=== PATIENT | female | born 1935 | race Caucasian/White ===

== ENCOUNTER 2018-09-26 11:46 | Inpatient (IN) | payer MEDICARE, MEDICAID ==
[~2018-09-26] VITALS: Ht 152.4 cm; Wt 54.4 kg
[2018-09-26] MEDS ORDERED: methylPREDNISolone SOD SUCC 125 MG/2 ML VIAL IV ONE (12:00)
[2018-09-26] MEDS ORDERED: ALBUTEROL SULFATE 2.5 MG/ 0.5 ML NEBU NEB ONE (12:00)
[2018-09-26] MEDS ORDERED: ALBUTEROL SULFATE 1.25 MG/3 ML NEBU ONE (12:01)
[2018-09-26] MEDS ORDERED: IPRATROPIUM BROMIDE 0.5 MG/2.5 ML NEBU ONE (12:01)
[2018-09-26] MEDS ORDERED: ALBUTEROL SULFATE 2.5 MG/3 ML NEBU ONE (12:02)
[2018-09-26] MEDS ORDERED: methylPREDNISolone SOD SUCC 125 MG/2 ML VIAL ONE (12:10)
[2018-09-26 12:11] LABS: BASOPHILS % (AUTO) 0.6 % (0.0-2.0); HEMATOCRIT 40.2 % (31.2-41.9); HEMOGLOBIN 13.3 g/dL (10.9-14.3); LYMPHOCYTES # (AUTO) 1.7 K/uL (20.0-40.0); LYMPHOCYTES % (AUTO) 33.1 % (20.5-51.5); MEAN CORPUSCULAR HEMOGLOBIN 28.3 uug (24.7-32.8); MEAN CORPUSCULAR HGB CONC 33 g/dL (32.3-35.6); MEAN CORPUSCULAR VOLUME 85.3 fL (75.5-95.3); MONOCYTES # (AUTO) 0.8 K/uL (2.0-10.0); MONOCYTES % (AUTO) 15.4 % (0.0-11.0); NEUTROPHILS # (AUTO) 2.5 K/uL (1.8-8.9); NEUTROPHILS % (AUTO) 49.9 % (38.5-71.5); PLATELET COUNT (AUTO) 179 K/uL (179-408); RED BLOOD CELL COUNT(AUTO) 4.71 MIL/uL (3.63-4.92)
[2018-09-26 12:24] LABS: CARBON DIOXIDE 26 mmol/L (21-32); CHLORIDE 105 mmol/L (98-107); CREATININE 0.9 mg/dL (0.6-1.3); GLUCOSE 106 mg/dL (74-106); POTASSIUM 4.2 mmol/L (3.5-5.1); UREA NITROGEN, BLOOD 20 mg/dL (7-18)
[2018-09-26 12:28] LABS: NEUTROPHILS % (MANUAL) 50 % (42-75)
[2018-09-26 12:29] LABS: EOSINOPHILS % (MANUAL) 1 % (0-8); LYMPHOCYTES % (MANUAL) 34 % (20-40); MONOCYTES % (MANUAL) 15 % (2-10)
[2018-09-26 12:37] LABS: ALANINE AMINOTRANSFERASE 14 U/L (14-59); ALKALINE PHOSPHATASE 51 U/L (50-136); ASPARTATE AMINOTRANSFERASE 24 U/L (15-37); BILIRUBIN,DIRECT 0.1 mg/dL (0.0-0.2); BILIRUBIN,TOTAL 0.2 mg/dL (0.2-1.0); TOTAL PROTEIN, SERUM 6.7 g/dL (6.4-8.2)
[2018-09-26] MEDS ORDERED: LOSA50TA39 PO (12:53)
[2018-09-26] MEDS ORDERED: METH5TAB6 PO (12:53)
[2018-09-26] MEDS ORDERED: ESCI10TA PO (12:53)
[2018-09-26] MEDS ORDERED: MIRA25TA PO (12:53)
[2018-09-26] MEDS ORDERED: GABA-532 PO (12:53)
[2018-09-26] MEDS ORDERED: TRAM50TA2 PO (12:53)
[2018-09-26] MEDS ORDERED: LOSA1TAB36 PO (12:53)
[2018-09-26] MEDS ORDERED: OSELTAMIVIR PHOSPHATE 75 MG CAPSULE PO ONE (13:15)
[2018-09-26] MEDS ORDERED: OSELTAMIVIR PHOSPHATE 75 MG CAPSULE ONE (13:35)
--- NOTE | 2018-09-26 14:10 | NUR ---
pt transfered to floor in stable condition. hospital sandwich provided per pt request.
[2018-09-26 14:28] VITALS: BP 145/63
--- NOTE | 2018-09-26 14:28 | NUR ---
pt arrived via family primitivo at bedside, pt is on 3L NC, with rhonchi and wheezing, no sputum present, skin intact, ambulatory BRP, farsi speaking only, cooperative. No signs of respiratory distress.
[2018-09-26] MEDS ORDERED: TRAMADOL HCL 50 MG TABLET PO PRN (16:30)
[2018-09-26] MEDS ORDERED: HYDROCODONE/APAP 5-325MG TABLET PO PRN (16:30)
[2018-09-26] MEDS ORDERED: Z GUARD REMEDY PASTE 57 GM TUBE TOP PRN (16:30)
[2018-09-26] MEDS ORDERED: ALBUTEROL SULFATE 2.5 MG/ 0.5 ML NEBU NEB SCH (16:30)
[2018-09-26] MEDS ORDERED: ONDANSETRON 4 MG/2 ML VIAL IV PRN (16:30)
[2018-09-26] MEDS ORDERED: IPRATROPIUM BROMIDE 0.5 MG/2.5 ML NEBU NEB SCH (16:30)
[2018-09-26] MEDS: IV NS 1000 ML 1,000 ML IV PRN (18:07)
--- NOTE | 2018-09-26 18:47 | NUR ---
Pt in room with IV fluids nS at 75cc/hr, iv patent, no signs of respiratory distress, bed at lowest locked position, pt wearing nonskid socks, call light with in reach, bed alarm on for safety. Continue to monitor pt.
--- NOTE | 2018-09-26 18:52 | NUR ---
unable to reach family about medication methimazole 5mg. will endorse to next shift.
--- NOTE | 2018-09-26 18:57 | NUR ---
was able to contact son Troy he states that his mother takes Methimazole 5mg daily in the morning. Endorsed info pharmacy. continue to monitor pt.
--- NOTE | 2018-09-26 19:30 | NUR ---
patient is awake, oriented x4, pleasant and cooperative, short of breath, audible wheezing. On auscultation wheezing and rhonchi bilaterally. patient ambulated to the bathroom with a walker and stand-by assist without issues. Sleeps intermittently, independently mobile in bed. Advised to call the nurse prior to ambulation. Breathing Tx given. Comfort and safety provided. Continuing to monitor.
[2018-09-26] MEDS: IPRATROPIUM BROMIDE 0.5 MG/2.5 ML NEBU NEB SCH ×2 (19:33→22:35)
[2018-09-26] MEDS: ALBUTEROL SULFATE 2.5 MG/ 0.5 ML NEBU NEB SCH ×2 (19:34→22:35)
[2018-09-26 21:11] VITALS: BP 136/63
[2018-09-26] MEDS: OSELTAMIVIR PHOSPHATE 75 MG CAPSULE PO SCH (21:19)
[2018-09-26] MEDS: methylPREDNISolone SOD SUCC 125 MG/2 ML VIAL IV SCH (21:22)
[2018-09-27] VITALS: BP 125/54
[2018-09-27] MEDS: ALBUTEROL SULFATE 2.5 MG/ 0.5 ML NEBU NEB SCH ×6 (02:17→22:30)
[2018-09-27] MEDS: IPRATROPIUM BROMIDE 0.5 MG/2.5 ML NEBU NEB SCH ×6 (02:18→22:30)
[2018-09-27 04:00] VITALS: BP 145/71
[2018-09-27] MEDS: methylPREDNISolone SOD SUCC 125 MG/2 ML VIAL IV SCH ×3 (05:06→21:13)
[2018-09-27 06:47] LABS: BASOPHILS % (AUTO) 0.1 % (0.0-2.0); HEMATOCRIT 38.3 % (31.2-41.9); HEMOGLOBIN 12.7 g/dL (10.9-14.3); LYMPHOCYTES # (AUTO) 0.8 K/uL (20.0-40.0); LYMPHOCYTES % (AUTO) 12.5 % (20.5-51.5); MEAN CORPUSCULAR HEMOGLOBIN 28.3 uug (24.7-32.8); MEAN CORPUSCULAR HGB CONC 33 g/dL (32.3-35.6); MEAN CORPUSCULAR VOLUME 85.4 fL (75.5-95.3); MONOCYTES # (AUTO) 0.2 K/uL (2.0-10.0); MONOCYTES % (AUTO) 3.5 % (0.0-11.0); NEUTROPHILS # (AUTO) 5.5 K/uL (1.8-8.9); NEUTROPHILS % (AUTO) 83.9 % (38.5-71.5); PLATELET COUNT (AUTO) 173 K/uL (179-408); RED BLOOD CELL COUNT(AUTO) 4.48 MIL/uL (3.63-4.92); WHITE BLOOD COUNT (AUTO) 6.6 K/uL (3.8-11.8)
--- NOTE | 2018-09-27 06:53 | NUR ---
Patient slept intermittently through the night, denies pain. had 3 bathroom trips with a walker. Comfort and safety provided.
[2018-09-27 07:00] LABS: ALANINE AMINOTRANSFERASE 11 U/L (14-59); ALKALINE PHOSPHATASE 40 U/L (50-136); ASPARTATE AMINOTRANSFERASE 19 U/L (15-37); BILIRUBIN,TOTAL 0.2 mg/dL (0.2-1.0); CARBON DIOXIDE 26 mmol/L (21-32); CHLORIDE 105 mmol/L (98-107); CHOLESTEROL 136 mg/dL (<200); CREATININE 0.9 mg/dL (0.6-1.3); GLUCOSE 178 mg/dL (74-106); HDL CHOLESTEROL 41 mg/dL (40-60); MAGNESIUM 1.8 mg/dL (1.8-2.4); PHOSPHOROUS 2.9 mg/dL (2.5-4.9); POTASSIUM 4.2 mmol/L (3.5-5.1); TOTAL PROTEIN, SERUM 6.3 g/dL (6.4-8.2); TRIGLYCERIDES 37 MG/DL (30-150); UREA NITROGEN, BLOOD 13 mg/dL (7-18)
--- NOTE | 2018-09-27 08:07 | NUR ---
PATIENT IS RESTING IN THE BED, NO PAIN NO DISTRESS NOTED, NO ACUTE EPISODES DURING NIGHT PER SHOP LEAD NURSE.COOPERATIVE WITH CARE, ALL SAFETY AND COMFORT MEASURES ARE MET
[2018-09-27] MEDS ORDERED: LOSARTAN POTASSIUM 50 MG TABLET PO SCH (09:00)
[2018-09-27] MEDS: ESCITALOPRAM OXALATE 10 MG TABLET PO SCH (09:27)
[2018-09-27] MEDS: GABAPENTIN 100 MG CAPSULE PO SCH (09:27)
[2018-09-27] MEDS: OSELTAMIVIR PHOSPHATE 75 MG CAPSULE PO SCH ×2 (09:31→21:12)
[2018-09-27] MEDS: LOSARTAN POTASSIUM 50 MG TABLET PO SCH (09:31)
[2018-09-27] MEDS: METHIMAZOLE 5 MG TABLET PO SCH (09:32)
[2018-09-27] MEDS: ACETAMINOPHEN 325 MG TABLET PO PRN ×2 (10:24→21:12)
[2018-09-27 11:38] VITALS: BP 155/61
[2018-09-27] MEDS: IV NS 1000 ML 1,000 ML IV PRN (12:18)
[2018-09-27 15:09] VITALS: BP 146/51
--- NOTE | 2018-09-27 18:34 | NUR ---
PATIENT IS RESTING COMFORTABLY, SHE IS FEELING GOOD,SHE GETS UP TO THE BATHROOM, SHE HAD A VISITORS TODAY. WAS SEATING IN THE CHAIR, HAD A 2 BREATHING TREATMENTS ,NO S/S OF DISTRESS NOTED, IV NS IS RUNNING 75CC PER HOUR, ALL SAFETY AND COMFORT MEASURES ARE IMPLEMENTED , BED IN LOW POSITION, SIDE RAILS UP X2, COMPLAINT WITH PLAN OF CARE WILL CONTINUE TO MONITOR WITH [facility] [employer]
--- NOTE | 2018-09-27 19:40 | NUR ---
RECEIVED PATIENT AWAKE AND ALERT IN BED. IN NO ACUTE DISTRESS. NO COMPLAINTS OF PAIN OR SOB, PATIENT IS ON 2L NC SATURATING AT 98% IVF RUNNING ON THE RIGHT FOREARM. ON DROPLET PRECAUTIONS. PATIENT IS ABLE TO AMBULATE TO RESTROOM WITH ASSISTANCE. SAFETY MEASURES INITIATED. BED IS LOW AND LOCKED, CALL LIGHT IS WITHIN REACH. WILL CONTINUE TO MONITOR.
[2018-09-27 20:50] VITALS: BP 151/69
[2018-09-28 00:28] VITALS: BP 137/65
[2018-09-28] MEDS: ALBUTEROL SULFATE 2.5 MG/ 0.5 ML NEBU NEB SCH ×6 (02:30→23:01)
[2018-09-28] MEDS: IPRATROPIUM BROMIDE 0.5 MG/2.5 ML NEBU NEB SCH ×6 (02:30→23:01)
[2018-09-28] MEDS: IV NS 1000 ML 1,000 ML IV PRN ×2 (03:29→21:47)
[2018-09-28 05:14] VITALS: BP 129/74
[2018-09-28] MEDS: methylPREDNISolone SOD SUCC 125 MG/2 ML VIAL IV SCH (05:24)
--- NOTE | 2018-09-28 06:10 | NUR ---
Patient slept well throughout shift. No signs of acute distress noted. No complains of SOB. Complained of pain, gave PRN pain medication x1 and was effective. IVF running on the right forearm. Was able to ambulate to restroom with standby assist. However, whenever she gets up to walk, she starts to become SOB. Put a bedside commode in room. All medications given as ordered. All needs were met. Safety measures given. Will continue to monitor.
--- NOTE | 2018-09-28 07:15 | NUR ---
received patient on bed, awake, aaox3 no acute distress noted on tele sr-sinus tachy, on droplet precaution, observed at all times. IV access on RFA #20 running NS @ 75 cc/hr infusing well, no complaints of pain/discomfort. afebrile per machine stuffer, patient's HR goes up when ambulating to bathroom. comfort measures provided. call light within reach. will continue to monitor closely.
[2018-09-28] MEDS: OSELTAMIVIR PHOSPHATE 75 MG CAPSULE PO SCH ×2 (10:28→20:54)
[2018-09-28] MEDS: GABAPENTIN 100 MG CAPSULE PO SCH (10:28)
[2018-09-28] MEDS: ESCITALOPRAM OXALATE 10 MG TABLET PO SCH (10:28)
[2018-09-28] MEDS: METHIMAZOLE 5 MG TABLET PO SCH (10:28)
[2018-09-28] MEDS: LOSARTAN POTASSIUM 50 MG TABLET PO SCH (10:30)
[2018-09-28] MEDS: FAMOTIDINE 20 MG TABLET PO SCH (10:30)
[2018-09-28 11:57] VITALS: BP 159/63
[2018-09-28 16:10] VITALS: BP 138/65
--- NOTE | 2018-09-28 18:00 | NUR ---
RECEIVED ORDERS FROM DR. MIKE PATIENT MAY USE OWN MED, LUMIGAN 0.01% 1 DROP EACH EYE AT BEDTIME, NOTED AND CARRIED OUT
--- NOTE | 2018-09-28 18:24 | NUR ---
PATIENT STABLE THROUGHOUT SHIFT, DOWNGRADED TO MEDSURG. IVF INFUSING WELL. WHEEZING NOTED BREATHING TX ROUTINELY. ON O2 @ 2LPM VIA NC, WELL TOLERATED. DROPLET PREC OBSERVED AT ALL TIMES. NO COMPLAINTS OF PAIN/DISCOMFORT. ALL NEEDS ATTENDED AND ANTICIPATED, CALL LIGHT WITHIN REACH. WILL ENDORSE ACCORDINGLY.
--- NOTE | 2018-09-28 19:20 | NUR ---
RECEIVED PATIENT LYING IN BED. AAOX4. DENIES ANY PAIN OR SOB. ON O2 AT 2LPM VIA NC IN PLACE. NOTED WITH OCCASIONAL MOIST COUGH AND AUDIBLE CRACKLES. IN NO ACUTE DISTRESS. IV SITE ON RIGHT FA INTACT AND PATENT. IVF INFUSING. NEEDS ASSESSED AND ATTENDED TO. SAFETY MEASURE INITIATED AND CALL MG WITHIN REACH.
[2018-09-28 20:00] VITALS: BP 168/77
[2018-09-28] MEDS: ACETAMINOPHEN 325 MG TABLET PO PRN (20:54)
[2018-09-28] MEDS: EYE EACHEYE SCH (20:54)
[2018-09-28] MEDS: LUMIGAN 0.01% EACHEYE SCH (20:54)
[2018-09-28 21:00] VITALS: BP 156/74
[2018-09-28] MEDS ORDERED: BIMATOPROST 0.01% OPHT DROP 2.5 ML BOTTLE EACHEYE SCH (21:00)
--- NOTE | 2018-09-28 21:36 | NUR ---
PATIENT COMPLAINED OF SORE THROAT, INFORMED DR SADIE MIKE AND OBTAINED ORDER FOR CEPACOL LOZENGES 1 Q2HRS PRN FOR SORE THROAT. ORDER NOTED AND CARRIED OUT.
[2018-09-28] MEDS: BENZOCAINE/MENTH/CETYLPYRD LOZENGE MM PRN (21:46)
[2018-09-29] MEDS: IPRATROPIUM BROMIDE 0.5 MG/2.5 ML NEBU NEB SCH ×7 (03:12→23:07)
[2018-09-29] MEDS: ALBUTEROL SULFATE 2.5 MG/ 0.5 ML NEBU NEB SCH ×7 (03:12→23:07)
[2018-09-29] MEDS: BENZOCAINE/MENTH/CETYLPYRD LOZENGE MM PRN (05:07)
[2018-09-29 05:30] VITALS: BP 187/88
--- NOTE | 2018-09-29 05:30 | NUR ---
PATIENT BP ON RIGHT ARM WAS 187/88 AND ON LEFT ARM WAS 175/81. HR 88. PATIENT DENIES ANY DIZZINESS OR HEADACHE. PATIENT ASYMPTOMATIC. DR STANLEY MADE AWARE AND ORDERED CLONIDINE 0.1MG PO Q6HRS PRN FOR SBP ABOVE 150. ORDER VERIFIED AND WILL CARRY OUT.
[2018-09-29] MEDS: CLONIDINE HCL 0.1 MG TABLET PO PRN ×2 (05:44→20:45)
--- NOTE | 2018-09-29 06:12 | NUR ---
AAOX4. DENIES ANY PAIN OR SOB. IN NO ACUTE DISTRESS. ON O2 AT 3LPM VIA NC IN PLACE. O2 SAT AT 97%. STILL WITH OCCASIONAL MOIST COUGH AND AUDIBLE WHEEZING AND CRACKLES. SOB ON EXERTION. IV SITE ON RIGHT FA INTACT AND PATENT. IVF INFUSING. NEEDS ATTENDED TO AND MET. SAFETY MEASURE MAINTAINED AND CALL MG WITHIN REACH.
[2018-09-29 06:37] VITALS: BP 165/78
--- NOTE | 2018-09-29 07:05 | NUR ---
PATIENT IN BED LAYING COMFORTABLY, CONTINUE ON DROPLET ISOLATION, ISOLATION PRECAUTION,M PATIENT ALERT AND ORIENTED, AMBULATORY WITH ASSIST, NO C/O PAIN AT THIS TIME, KEPT HOB ELEVATED, BED IN LOW POSITION AND SIDE RAILS UP X2, BED ALARM ON, IV INTACT AND PATENT WITH IV INFUSING WITH NORMAL SALINE AT 75 CC /HR. ON OXYGEN VIA NASAL CANNULA. IN NO ACUTE DISTRESS NOTED AT THIS TIME. AUDIBLE WHEEZING AND CRACKLES. WILL CONTINUE TO MONITOR AND CONTINUE TREATMENT PLAN.
[2018-09-29] MEDS: GABAPENTIN 100 MG CAPSULE PO SCH (08:36)
[2018-09-29] MEDS: ESCITALOPRAM OXALATE 10 MG TABLET PO SCH (08:36)
[2018-09-29] MEDS: predniSONE 20 MG TABLET PO SCH (08:36)
[2018-09-29] MEDS: LOSARTAN POTASSIUM 50 MG TABLET PO SCH (08:36)
[2018-09-29] MEDS: FAMOTIDINE 20 MG TABLET PO SCH (08:37)
[2018-09-29] MEDS: AMLODIPINE 5 MG TABLET PO SCH (08:37)
[2018-09-29] MEDS: METHIMAZOLE 5 MG TABLET PO SCH (08:38)
[2018-09-29] MEDS: OSELTAMIVIR PHOSPHATE 75 MG CAPSULE PO SCH ×2 (08:38→20:32)
[2018-09-29] MEDS: IV NS 1000 ML 1,000 ML IV PRN (11:49)
[2018-09-29] MEDS: ENSURE WITH FIBER 237 ML LIQUID (CHOCOLATE) PO SCH ×2 (12:00→17:00)
[2018-09-29 16:16] VITALS: BP 145/72
--- NOTE | 2018-09-29 18:41 | NUR ---
PATIENT IN BED LAYING COMFORTABLY, CONTINUE ON DROPLET ISOLATION, ISOLATION PRECAUTION, PATIENT ALERT AND ORIENTED, AMBULATORY WITH ASSIST, NO C/O PAIN AT THIS TIME, KEPT HOB ELEVATED, BED IN LOW POSITION AND SIDE RAILS UP X2, BED ALARM ON, IV INTACT AND PATENT WITH IV INFUSING WITH NORMAL SALINE AT 75 CC /HR. ON OXYGEN VIA NASAL CANNULA. IN NO ACUTE DISTRESS NOTED AT THIS TIME. AUDIBLE WHEEZING AND CRACKLES. DR. VINCENT ORDERED MIRALAX FOR CONSTIPATION. WILL CONTINUE TO MONITOR AND CONTINUE TREATMENT PLAN WITH BUILDING CONSTRUCTION SUPERINTENDENT.
[2018-09-29] MEDS ORDERED: MIRALAX 17 GM POWD.PACK PO PRN (18:45)
[2018-09-29 20:00] VITALS: BP 154/69
--- NOTE | 2018-09-29 20:10 | NUR ---
Received patient awake, alert and oriented in bed. Mainly Farsi speaking but understands some Portuguese and is able to verbalize needs. Patient is on droplet precautions. Positive influenza A. Wheezing upon auscultation noted. Receiving 2L NC. HOB of the bed elevated. Denies pain. IV intact and patent with NS running at 75ml/hr. Safety and comfort measures implemented. Bed in lowest and locked position. Bed alarm on. All needs met at this time. Will continue to monitor throughout shift.
[2018-09-29] MEDS: LUMIGAN 0.01% EACHEYE SCH (20:31)
[2018-09-29] MEDS: EYE EACHEYE SCH (20:31)
[2018-09-30] MEDS: IV NS 1000 ML 1,000 ML IV PRN (01:57)
[2018-09-30] MEDS: IPRATROPIUM BROMIDE 0.5 MG/2.5 ML NEBU NEB SCH ×4 (02:34→15:14)
[2018-09-30] MEDS: ALBUTEROL SULFATE 2.5 MG/ 0.5 ML NEBU NEB SCH ×5 (02:34→15:13)
[2018-09-30 04:00] VITALS: BP 159/91
[2018-09-30] MEDS: CLONIDINE HCL 0.1 MG TABLET PO PRN (04:35)
--- NOTE | 2018-09-30 06:20 | NUR ---
Patient slept throughout the night. Denies pain. No acute distress at this time. On 2L NC. HOB elevated. NS running at 75ml/hr. No change in status. Call light within reach. All needs met. Continue plan of care.
--- NOTE | 2018-09-30 07:22 | NUR ---
PATIENT IN BED LAYING COMFORTABLY, CONTINUE ON DROPLET ISOLATION, ISOLATION PRECAUTION, PATIENT ALERT AND ORIENTED, AMBULATORY WITH ASSIST, NO C/O PAIN AT THIS TIME, KEPT HOB ELEVATED, BED IN LOW POSITION AND SIDE RAILS UP X2, BED ALARM ON, IV INTACT AND PATENT WITH IV INFUSING WITH NORMAL SALINE AT 75 CC /HR. ON OXYGEN VIA NASAL CANNULA. IN NO ACUTE DISTRESS NOTED AT THIS TIME. WILL CONTINUE TO MONITOR AND CONTINUE TREATMENT PLAN
[2018-09-30] MEDS: ENSURE WITH FIBER 237 ML LIQUID (CHOCOLATE) PO SCH ×2 (08:00→12:55)
[2018-09-30] MEDS: predniSONE 20 MG TABLET PO SCH (09:17)
[2018-09-30] MEDS: GABAPENTIN 100 MG CAPSULE PO SCH (09:17)
[2018-09-30] MEDS: ESCITALOPRAM OXALATE 10 MG TABLET PO SCH (09:17)
[2018-09-30] MEDS: FAMOTIDINE 20 MG TABLET PO SCH (09:17)
[2018-09-30] MEDS: LOSARTAN POTASSIUM 50 MG TABLET PO SCH (09:19)
[2018-09-30] MEDS: AMLODIPINE 5 MG TABLET PO SCH (09:20)
[2018-09-30] MEDS: METHIMAZOLE 5 MG TABLET PO SCH (09:20)
[2018-09-30 11:48] VITALS: BP 123/57
[2018-09-30 16:00] VITALS: BP 140/74
--- NOTE | 2018-09-30 17:12 | NUR ---
PATIENT DISCHARGED HOME,PICKED UP BY SON IN THE PRIVATE CAR. PATIENT ALERT, ORIENTED 2-3,VERBALLY RESPONSIVE, NO SOB, RESP EVEN NONLABORED,NO PAIN, OR ACUTE DISTRESS NOTED AT THIS TIME,DISCHARGE INSTRUCTIONS GIVEN TO PATIENT AND TO THE FAMILY, WITH PRESCRIBED MEDICATIONS,EXPLAINED BY PHARMACIST,BELONGINGS ACCOUNTED AND SIGNED,QUESTIONS AND CONCERNED ARE ADDRESSED.IV AND ID BAND REMOVED.
== END 2018-09-30 16:58 | disposition home or self-care (01) | DRG 193 ==
LOC: ER 11:46 → TELE3 14:12 → MEDSURG3 09-28 15:00
PROVIDERS: ADMIT Nurse Practitioner Acute Care; ATTEND Nurse Practitioner Acute Care
DX: J10.1 Influenza due to other identified influenza virus with other respiratory manifestations (principal); J96.01 Acute respiratory failure with hypoxia; J45.901 Unspecified asthma with (acute) exacerbation; E03.9 Hypothyroidism, unspecified; N32.81 Overactive bladder; I11.9 Hypertensive heart disease without heart failure; F32.9 Major depressive disorder, single episode, unspecified; Z79.899 Other long term (current) drug therapy; E11.9 Type 2 diabetes mellitus without complications
CPT/HCPCS: 36415; 70030-TC; 71045; 83735; 84100; 84443; 85025; 85730; 87400; 93005; 93307; 94640; 94664; 97116; 97530; A4663; G0378; J2930; J3590; J7030; J7120; J7512